=== PATIENT | male | born 1940 | race Caucasian/White ===

== ENCOUNTER 2017-05-22 07:54 | Day surgery (SDC) | payer MEDICARE, OTHER ==
[2017-05-18 14:01] VITALS: BMI 27.7
[~2017-05-22 07:54] MED LIST: ALPRAZolam 0.25 MG TAB PO PRN; ASPIRIN 325 MG TAB PO STA
[2017-05-22] MEDS ORDERED: SODIUM CHLORIDE 0.9% 1,000 ML in EMPTY BAG 1 BAG IV ONE (08:00)
[2017-05-22 08:57] LABS: Anion Gap 12 mmol/L; Blood Urea Nitrogen 21 mg/dL (9-20); Carbon Dioxide 23 mmol/L (22-30); Chloride 106 mmol/L (98-107); Glucose 112 mg/dL (74-99); Potassium 4.6 mmol/L (3.5-5.1); Sodium 141 mmol/L (137-145)
[2017-05-22] MEDS ORDERED: LIDOCAINE 2% INJ 20 MG/ML SQ ONE (14:18)
[2017-05-22] MEDS ORDERED: MIDAZOLAM 2 MG/2 ML VIAL IVP ONE (14:18)
[2017-05-22] MEDS ORDERED: IODIXANOL 320 MG/ML 100 ML INTRAARTER ONE (14:33)
[2017-05-22] MEDS ORDERED: SODIUM CHLORIDE 0.9% 1,000 ML IV SCH (14:45)
[2017-05-22 16:09] VITALS: RESP 18; TEMP 96.8
[2017-05-22 19:04] VITALS: BP 149/73; PULSE 79
--- NOTE | 2017-05-22 20:35 | P.OP ---
Date of Procedure: 05/22/17 Preoperative Diagnosis: Severe claudication [place] classification 3 Postoperative Diagnosis: 1. Same 2. Left common iliac artery occlusion Procedure(s) Performed: Aortogram with bilateral lower extremity runoffs Implants: none Anesthesia: local Surgeon: Chaparro Pearson Estimated Blood Loss (ml): 5 Pathology: none sent Condition: stable Disposition: observation Indications for Procedure: 76 year old male who presented to the office with complaints of pain with ambulation ongoing for years with worsening pain over the last couple months. Patient states only able to ambulate 200 feet without significant pain at his left hip and calves. He had MAGNOLIA of 0.52 on the left and presents today for angiogram. Operative Findings: Left common iliac artery flush occlusion with recollateralization at the common femoral artery. Aorta, Right iliac system, femoral, popliteal, tibial arteries without significant disease. Description of Procedure: After written and informed consent was obtain and all risks, benefits and complications were described the patient was brought to the general production laborer and laid in a supine position. The groins were prepped and draped in usual sterile fashion. Using ultrasound the right common femoral artery was visualized and cannulated with a multipurpose needle. Utilizing Seldinger technique a 5 khmer sheath was placed. A glidewire was placed in the aorta, followed by a pigtail catheter. An aortogram was obtained. The catheter was withdrawn and bilateral runoffs were obtained. All catheters and sheaths were then removed and pressure held for hemostasis. Dressings were then placed. The patient tolerated the procedure well.
--- NOTE | 2017-05-23 08:01 | IR ---
EXAMINATION TYPE: IR angio abdominal w runoff DATE OF EXAM: 05/22/2017 CLINICAL HISTORY: Left leg pain. TECHNIQUE: Fluoroscopy. COMPARISON: None. FINDINGS: Fluoroscopic guidance was provided during abdominal angiogram procedure performed by Dr. Lisa perry. A total of 0.9 minutes of fluoroscopic time was utilized during the procedure and 6 cine seq uences are acquired. Cine images acquired show access via right groin with complete occlusion at leve l of left common iliac artery origin and extensive collateral flow. Incidental left hip arthroplasty and surgical clips presacral region. Please refer to procedure note for further details as I was not present nor performed procedure. IMPRESSION: As Above.
== END 2017-05-22 21:00 | disposition home or self-care (01) ==
LOC: CATHCVL 07:54 → 3OBS 14:30 → CATHCVL 21:00
PROVIDERS: ATTEND Surgery
DX: I73.9 Peripheral vascular disease, unspecified (principal); I74.5 Embolism and thrombosis of iliac artery; I70.211 Atherosclerosis of native arteries of extremities with intermittent claudication, right leg; E78.5 Hyperlipidemia, unspecified; Z79.2 Long term (current) use of antibiotics; Z79.899 Other long term (current) drug therapy; Z88.5 Allergy status to narcotic agent; Z87.891 Personal history of nicotine dependence
CPT/HCPCS: 36200; 75625; 75716; 80048; C1769 ×3; C1894; J2001; J2250; Q9967

== ENCOUNTER → 2017-07-05 | Outpatient (CLI) | payer MEDICARE, OTHER ==
[2017-07-05 11:36] LABS: Appearance,Urine Clear (Clear); Bilirubin,Urine Negative (Negative); Blood,Urine Negative (Negative); Color,Urine Colorless; Glucose,Urine (UA) Negative (Negative); Ketones,Urine Negative (Negative); Leukocyte Esterase,Urine Negative (Negative); Nitrite,Urine Negative (Negative); Protein,Urine Negative (Negative); Specific Gravity,Urine 1.002 (1.001-1.035); Urobilinogen,Urine <2.0 mg/dL (<2.0)
[2017-07-05 11:38] LABS: Basophils % (A) 0 %; Eosinophils # (A) 0.1 k/uL (0-0.7); Eosinophils % (A) 1 %; HCT 42.2 % (39.0-53.0); Lymphocytes # (A) 1.4 k/uL (1.0-4.8); Lymphocytes % (A) 20 %; MCH 28.5 pg (25.0-35.0); MCHC 33.2 g/dL (31.0-37.0); MCV 85.8 fL (80.0-100.0); Mean Platelet Volume 7.6; Monocytes # (A) 0.4 k/uL (0-1.0); Monocytes % (A) 6 %; Neutrophils # (A) 5.1 k/uL (1.3-7.7); Neutrophils % (A) 71 %; Platelet Count 233 k/uL (150-450); RBC 4.92 m/uL (4.30-5.90); RDW 14.3 % (11.5-15.5); WBC 7.2 k/uL (3.8-10.6)
[2017-07-05 11:54] LABS: Potassium 4.8 mmol/L (3.5-5.1)
== END | disposition home or self-care (01) ==
LOC: LABPAT 11:02
PROVIDERS: ATTEND Surgery
DX: Z01.812 Encounter for preprocedural laboratory examination (principal); I70.212 Atherosclerosis of native arteries of extremities with intermittent claudication, left leg
CPT/HCPCS: 36415; 80051; 81003; 82565; 84520; 85025

== ENCOUNTER 2017-07-10 06:20 | Day surgery (SDC) | payer MEDICARE, OTHER ==
[2017-07-05 14:14] VITALS: BMI 28.1
[~2017-07-10 06:20] MED LIST changes: -ALPRAZolam 0.25 MG TAB PO PRN; +DEXAMETHASONE SOD PHOSPHATE 10 MG/ML 1 ML VIAL IV ONE; +LIDOCAINE 1% 20 ML VIAL (10MG/ML) FOR IV START INTRADERMA PRN; +MIDAZOLAM 2 MG/2 ML VIAL IV PRN; +MORPHINE SULFATE 2 MG/ML SYRINGE IV PRN; +ONDANSETRON 4 MG/2 ML VIAL IVP ONE; +SCOPOLAMINE 1.5MG/72HR PATCH TRANSDERM ONE; +SODIUM CHLORIDE 0.9% 1,000 ML in EMPTY BAG 1 BAG IV ONE
[2017-07-10] MEDS ORDERED: MIDAZOLAM 2 MG/2 ML VIAL IVP ONE (07:36)
[2017-07-10] MEDS ORDERED: LIDOCAINE 2% INJ 20 MG/ML SQ ONE (07:40)
[2017-07-10] MEDS ORDERED: HEPARIN SODIUM 1,000 UN/ML (10ML VL) IV ONE (07:47)
[2017-07-10] MEDS: fentaNYL (PF) 50 MCG/ML 2 ML AMP IVP ONE ×2 (08:30→10:09)
[2017-07-10] MEDS ORDERED: LABETALOL 5 MG/ML VIAL MDV IVP ONE (10:32)
[2017-07-10] MEDS ORDERED: IODIXANOL 320 MG/ML 100 ML INTRAARTER ONE (10:33)
[2017-07-10] MEDS ORDERED: CLOPIDOGREL 75 MG TAB PO ONE (10:37)
[2017-07-10] MEDS ORDERED: PROTAMINE SULFATE 10 MG/ML 5 ML VIAL IV ONE (10:43)
--- NOTE | 2017-07-10 12:08 | P.OP ---
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 Postoperative Diagnosis: Same Procedure(s) Performed: 1. Left common iliac and external iliac artery percutaneous balloon angioplasty and Viabahn and the VBX stent placement via bilateral common femoral artery access under ultrasound guidance. Implants: Viabahn stent [id number], VBX stent 7x79mm and 7x29mm Anesthesia: MAC (2 hours of moderate sedation with Versed.), local Surgeon: Chaparro Pearson Estimated Blood Loss (ml): 30 IV fluids (ml): 400 Pathology: none sent Condition: stable Disposition: observation Indications for Procedure: 76-year-old gentleman who presented originally to the office with complaints of left lower extremity pain especially with ambulation originating at his anterior thigh and hip region. Previously he underwent multiple orthopedic surgeries including a total knee and total hip. Upon visit to the vascular surgeon he had ABIs which demonstrated decreased blood flow in the left lower extremity and then underwent angiogram which demonstrated a chronic total occlusion of his left common iliac artery extending to his external iliac artery. He presents today for attempt at revascularization endovascularly. Operative Findings: Left common iliac artery with chronic total occlusion with a large collateral vessel filling distally to the common femoral artery. Description of Procedure: After written informed consent was obtained from the patient all risks benefits and competitions were described the patient was brought to the Game Producer laid in a supine position the area of the groins were prepped and draped in the usual sterile fashion. Versed and fentanyl were given for moderate anesthesia. A timeout was performed in normal fashion with all parties are in agreement. Local anesthetic was then infused overlying the femoral vessels. Utilizing ultrasound the right common femoral artery was visualized and shown to be patent without any dense calcification. Multipurpose needle followed by Seldinger technique was utilized to place a 5-Honduran sheath in the common femoral artery. An .035 Glidewire advantage was then placed into the aorta followed by a 6.5-Honduran Destino sheath. Aortogram was then obtained demonstrating flush occlusion of the common iliac artery. Utilizing the Destino sheath and a series of wires the lesion was entered. Ultimately an .018 and .014 Astato wire was utilized to attempt to cross the lesion. Access was required in the left common femoral artery and therefore a 7 -Honduran sheath was placed under ultrasound guidance utilizing Seldinger technique. Once placed the lesion was crossed from a distal aspect and the retrograde and antegrade wires were met. Once crossed the .014 wire was placed within the 7-Honduran sheath and pulled externally. This was then used as a body floss wire to enter into the true lumen of the aorta from the left common femoral artery. An 018 Glidewire advantage was then placed followed by a 4 x 200 mm balloon. Balloon angioplasty. Left lower extremity selective angiogram of the iliac system was then obtained demonstrating improved blood flow to the femorals. At that time was determined to place a covered stent across the common and external iliac arteries. A 7 x 100 mm Viabahn stent was then placed and deployed in normal fashion at the femoral extending up to the external iliac artery. This was removed followed by a 7 x 79 mm VBX stent at the common iliac extending into the previously placed Viabahn stent. Angiogram was then obtained demonstrating improved blood flow through the stents with an area just at the bifurcation that appeared to be calcified. Blood pressures were then obtained through both sheaths demonstrating a gradient of greater than 20 mmHg on the left compared to the right. Because of this a 7 x 29 mm VBX stent was then placed at the orifice of the bifurcation. Finally gram was obtained revealing good brisk blood flow to the femorals bilaterally. Intravascular blood pressures were then obtained demonstrating equal blood pressures bilaterally without any evidence of a gradient. Pulses were then palpated distally bilateral DP and PT pulses were felt. All guidewires and catheters were then removed. Sheath was removed from each groin and pressure was placed for hemostasis. Hemostasis was achieved and dressings were placed. Patient tied procedure well was sent to PACU for recovery. Plan - Discharge Summary Discharge Rx Participant: Yes New Discharge Prescriptions: No Action Fish Oil/Dha/Epa [Fish Oil 1,200 mg Fish Oil] 1 each PO DAILY Lisinopril [Zestril] 20 mg PO DAILY Atorvastatin Calcium [Lipitor] 10 mg PO HS [place] 27 mg PO DAILY Discharge Medication List Atorvastatin Calcium [Lipitor] 10 mg PO HS 05/18/17 [History] Fish Oil/Dha/Epa [Fish Oil 1,200 mg Fish Oil] 1 each PO DAILY 05/18/17 [History] Lisinopril [Zestril] 20 mg PO DAILY 05/18/17 [History] [place] 27 mg PO DAILY 07/05/17 [History]
[2017-07-10 12:42] LABS: Calcium 9.8 mg/dL (8.4-10.2)
[2017-07-10 12:59] VITALS: RESP 18
[2017-07-10 13:06] LABS: Basophils % (A) 0 %; Eosinophils % (A) 0 %; HCT 42.2 % (39.0-53.0); HGB 14.2 gm/dL (13.0-17.5); Lymphocytes # (A) 1.3 k/uL (1.0-4.8); Lymphocytes % (A) 18 %; MCH 28.9 pg (25.0-35.0); MCHC 33.7 g/dL (31.0-37.0); MCV 85.7 fL (80.0-100.0); Mean Platelet Volume 7.5; Monocytes # (A) 0.5 k/uL (0-1.0); Monocytes % (A) 8 %; Neutrophils % (A) 72 %; Platelet Count 200 k/uL (150-450); RBC 4.92 m/uL (4.30-5.90); RDW 14.2 % (11.5-15.5); WBC 6.9 k/uL (3.8-10.6)
[2017-07-10] MEDS: LACTATED RINGERS 1,000 ML IV SCH (16:35)
[2017-07-10] MEDS: SODIUM CHLORIDE 0.9% 1,000 ML IV SCH ×2 (16:37→20:35)
[2017-07-10] MEDS ORDERED: PRAVASTATIN SODIUM 40 MG TAB PO SCH (21:00)
[2017-07-11] MEDS: LACTATED RINGERS 1,000 ML IV SCH (05:55)
--- NOTE | 2017-07-11 07:12 | P.PN ---
Subjective Progress Note Date: 07/11/17 Principal diagnosis: Left Iliac artery occlusion Patient seen and examined. Doing well overnight without any complaints. States he had a little bit of oozing from his left groin which has since ceased. He denies any pain, fevers, chills, chest pain or shortness of breath. He states he ambulated last night without difficulty. He also wishes to be discharged today if possible. Objective - Vital Signs Vital signs: Vital Signs Temp 97.5 F L 07/10/17 20:15 Pulse 85 07/11/17 04:30 Resp 18 07/11/17 04:30 BP 132/78 07/11/17 04:30 Pulse Ox 95 07/11/17 04:30 Intake & Output 07/10/17 07/11/17 07/11/17 18:59 06:59 18:59 Intake Total 360 740 Balance 360 740 Weight 78 kg Intake: IV 0 Intake, IV Titration 500 Amount Sodium Chloride 0.9% 1, 500 000 ml @ 100 mls/hr IV . Q10H [facility] Rx#:[id number] Oral 360 240 Other: Voiding Method Toilet # Voids 3 - Exam Well-nourished well-developed, no acute distress. Bilateral groins are soft, no evidence of hematoma, nontender to palpation. Palpable DP pulses bilaterally. - Labs CBC & Chem 7: 07/10/17 12:10 07/11/17 06:15 Assessment and Plan Assessment: 1. Postoperative day 1 left common iliac artery percutaneous transluminal balloon angioplasty with stenting. 2. Disabling claudication Plan: Okay for discharge home. Continue taking Plavix, statin. Follow-up then 2 weeks.
[2017-07-11] MEDS: SODIUM CHLORIDE 0.9% 1,000 ML IV SCH (07:43)
[2017-07-11] MEDS ORDERED: LISINOPRIL 20 MG TAB PO SCH (09:00)
[2017-07-11] MEDS ORDERED: CLOPIDOGREL 75 MG TAB PO SCH (09:00)
[2017-07-11] MEDS ORDERED: ASPIRIN 81 MG PO SCH (09:00)
[2017-07-11 11:10] VITALS: BP 154/80; PULSE 95; TEMP 97
--- NOTE | 2017-07-16 11:09 | IR ---
EXAMINATION TYPE: IR stent intravas non coronary DATE OF EXAM: 07/10/2017 COMPARISON: NONE HISTORY: Peripheral vascular occlusive disease. Fluoroscopy was provided to the referring clinician. See dictated report from cardiology.
== END 2017-07-11 12:10 | disposition home or self-care (01) ==
LOC: CATHCVL 06:20 → 6SEL 10:24 → CATHCVL 07-11 12:10 → 6SEL 07-11 12:26
PROVIDERS: ATTEND Surgery
DX: I70.212 Atherosclerosis of native arteries of extremities with intermittent claudication, left leg (principal); I70.92 Chronic total occlusion of artery of the extremities; E78.5 Hyperlipidemia, unspecified; I10 Essential (primary) hypertension; Z79.2 Long term (current) use of antibiotics; Z79.899 Other long term (current) drug therapy; Z79.82 Long term (current) use of aspirin; Z88.5 Allergy status to narcotic agent; Z96.642 Presence of left artificial hip joint; Z96.652 Presence of left artificial knee joint; Z87.891 Personal history of nicotine dependence
CPT/HCPCS: 37221; 37223; 80048; 82565; 85025; C1733; C1769 ×5; C1894 ×2; C1725 ×2; C1887; C1874 ×2; J2001; J2250; J2720; Q9967; J3010; J1644; 86850; 86900; 86901

== ENCOUNTER → 2021-03-28 | Outpatient (CLI) | payer MEDICARE, OTHER ==
[2021-03-28 18:46] LABS: Basophils # (A) 0.04 X 10*3/uL (0.00-0.10); Basophils % (A) 0.4 %; Eosinophils # (A) 0.08 X 10*3/uL (0.04-0.35); Eosinophils % (A) 0.9 %; HCT 42.1 % (39.6-50.0); HGB 13.6 g/dL (13.0-17.0); Lymphocytes # (A) 1.81 X 10*3/uL (0.90-5.00); Lymphocytes % (A) 19.8 %; MCH 29.2 pg (27.0-32.0); MCHC 32.3 g/dL (32.0-37.0); MCV 90.5 fL (80.0-97.0); Mean Platelet Volume 10.6 fL (9.5-12.2); Monocytes % (A) 9.8 %; Neutrophils # (A) 6.27 X 10*3/uL (1.80-7.70); Neutrophils % (A) 68.7 %; Platelet Count 285 X 10*3/uL (140-440); RBC 4.65 X 10*6/uL (4.40-5.60); RDW 14.2 % (11.5-14.5); WBC 9.14 X 10*3/uL (4.50-10.00)
[2021-03-28 21:07] LABS: African American GFR (CKD) 65.3 (60.0-200.0); Anion Gap 13.1 mmol/L (10.00-18.00); Blood Urea Nitrogen 20.7 mg/dL (9.0-27.0); Carbon Dioxide 20.9 mmol/L (20.0-27.5); Non-African American GFR(CKD) 56.4 (60.0-200.0); Potassium 4.6 mmol/L (3.5-5.5)
== END | disposition home or self-care (01) ==
LOC: LABWHC1 13:38
PROVIDERS: ATTEND Surgery
DX: Z01.812 Encounter for preprocedural laboratory examination (principal); I77.1 Stricture of artery
CPT/HCPCS: 36415; 80051; 82565; 84520; 85025

== ENCOUNTER 2021-03-29 06:33 | Inpatient (IN) | payer MEDICARE, OTHER ==
[~2021-03-29 06:33] MED LIST changes: -ASPIRIN 325 MG TAB PO STA; -DEXAMETHASONE SOD PHOSPHATE 10 MG/ML 1 ML VIAL IV ONE; -LIDOCAINE 1% 20 ML VIAL (10MG/ML) FOR IV START INTRADERMA PRN; -MIDAZOLAM 2 MG/2 ML VIAL IV PRN; -MORPHINE SULFATE 2 MG/ML SYRINGE IV PRN; -ONDANSETRON 4 MG/2 ML VIAL IVP ONE; -SCOPOLAMINE 1.5MG/72HR PATCH TRANSDERM ONE
[2021-03-29] MEDS ORDERED: ASPIRIN 325 MG TAB PO PRN (07:00)
[2021-03-29] MEDS ORDERED: SODIUM CHLORIDE 0.9% 1,000 ML IV ONE ×2 (07:13→10:59)
[2021-03-29 07:52] LABS: Calcium 9.9 mg/dL (8.4-10.2)
[2021-03-29] MEDS ORDERED: LIDOCAINE 1% INJ 10MG/ML (20 ML MDV) ONE (07:54)
[2021-03-29 07:57] LABS: Potassium 4.7 mmol/L (3.5-5.1)
[2021-03-29] MEDS: MIDAZOLAM 2 MG/2 ML VIAL IV ONE ×2 (08:23→08:45)
[2021-03-29] MEDS ORDERED: LIDOCAINE 1% INJ 10MG/ML (20 ML MDV) SQ ONE (08:24)
[2021-03-29] MEDS ORDERED: fentaNYL (PF) 50 MCG/ML 5 ML AMP IV ONE (08:26)
[2021-03-29] MEDS ORDERED: HEPARIN SODIUM 1,000 UN/ML (10ML VL) ONE (08:41)
[2021-03-29] MEDS: HEPARIN SODIUM 1,000 UN/ML (10ML VL) IV ONE ×2 (08:45→09:32)
[2021-03-29] MEDS ORDERED: ALTEPLASE IV STA (09:20)
[2021-03-29] MEDS ORDERED: ALTEPLASE 2 MG VIAL (CATHFLO) IV STA (09:31)
[2021-03-29] MEDS ORDERED: NITROGLYCERIN 1000MCG/10ML SYRINGE INTRAARTER ONE (10:19)
[2021-03-29] MEDS ORDERED: ALTEPLASE BOLUS 1 MG/1 ML SYRINGE IVP ONE (10:21)
[2021-03-29] MEDS ORDERED: niCARdipine 25 MG/10 ML VIAL ONE (10:26)
[2021-03-29] MEDS ORDERED: niCARdipine Syringe (1,000 mcg/10 mL) INTRAARTER ONE (10:29)
[2021-03-29 11:42] LABS: Glucose,Whole Blood 110 mg/dL (75-99)
--- NOTE | 2021-03-29 11:46 | IR ---
Fluoroscopy HISTORY: Peripheral vascular disease 37 minutes fluoroscopy time supplied to the referring clinician. 384 intraoperative C-arm images doc ument the procedure. See dictated report from vascular surgery.
--- NOTE | 2021-03-29 12:02 | P.OP ---
Date of Procedure: 03/29/21 Description of Procedure: Preoperative diagnosis: Left lower extremity critical limb ischemia Postop diagnosis: Left lower extremity critical limb ischemia Mena classification 4, left common iliac and external iliac artery stent thrombosis, small vessel outflow occlusive disease at the ankle Procedure: 1. Ultrasound-guided right common femoral artery access 2. Aortogram with left lower extremity angiogram 3. Selective left lower extremity angiogram third order catheter placement 4. Percutaneous mechanical thrombectomy of the left common iliac, external iliac in-stent thrombus with penumbra 6 and 7 lightning catheter 5. Percutaneous mechanical thrombectomy of the left superficial femoral and tibial peroneal trunk with penumbra catheter 6. Percutaneous transluminal balloon angioplasty of the left common iliac and external iliac in-stent stenosis with a 6 x 150 mm balloon 7. Intravascular ultrasound of the left common iliac, external iliac, common femoral and superficial femoral artery 8. Placement of EKOS thrombolytic catheter with initiation of thrombolysis Surgeon: Michel Anesthesia: Moderate sedation times 175 minutes Estimated blood loss: 500 mL Complications: None Condition: Stable with a biphasic signal AT and PT Findings: Occlusion of the left common and external iliac stent with thrombus. After penumbra thrombectomy and balloon angioplasty there was thrombus that extruded down to the tibial trunk. Two-vessel runoff to the ankle with no filling of the foot Aorta: Widely patent with some mild atherosclerotic, calcific disease without significant stenosis Iliacs: Left common iliac and external iliac stent believe thrombosed with reconstitution at the common femoral Femorals: Common femoral, superficial femoral and profundus femoris are widely patent with minimal disease. Popliteal: Widely patent with minimal after stenotic disease. No evidence of stenosis Tibials: Tibioperoneal trunk is patent with three-vessel takeoff and two-vessel runoff to the ankle Operative narrative: After written informed consent was obtained the patient all risks benefits competitions were described the patient is brought to the Automatic Beam Warper Tender and laid in a supine position. The area of the right groin was prepped and draped in the usual sterile fashion. Local anesthesia with moderate sedation was performed with continuous pulse ox monitoring and EKG monitoring. Utilizing ultrasound the right common femoral artery was visualized and shown to be patent without any significant plaque. Utilizing a multipurpose needle under ultrasound guidance the artery was accessed. Guidewire was placed followed by a 5-Venezuelan sheath. 035 Glidewire was then placed into the aorta followed by pigtail catheter. Angiogram was then obtained of the aorta demonstrating occlusion of the left common iliac and external iliac stent. 035 Glidewire advantage was then placed and sheath was upsized to a 6.5-Venezuelan steerable sheath. This was then placed into the distal aorta and angled to the left common iliac stents and utilizing an 035 Glidewire advantage the stents were entered and crossed. Utilizing the RBI catheter the stent was crossed into the common femoral artery and distal angiogram was obtained demonstrating good intraluminal access. Due to the thrombotic nature at that time was determined to place a percutaneous thrombectomy catheter. 035 Glidewire advantage was then placed and RBI catheter was removed and a 6-Venezuelan penumbra thrombectomy catheter was placed and multiple passes were performed over the wire. Injury gram was then obtained again demonstrating slight improvement but significant thrombus within the stents. Intravascular ultrasound catheter was then placed after the Glidewire was switched an 014 guidewire. Left common iliac and external iliac as well as the common femoral artery was visualized under ultrasound demonstrating thrombus throughout with out significant stenosis. Balloon angioplasty was then performed with a 6 x 150 mm balloon and intravascular ultrasound was performed once again after angioplasty. There is improvement of the lumen but still significant thrombus noted. Due to the size of the stents it was determined that a 7 lightning penumbra catheter was needed and thrombectomy was performed after upsizing to a 7-Venezuelan sheath. Multiple passes were performed with large amount of thrombus removed. Once completed selective angiogram was then again obtained demonstrating brisk flow through the external iliac and common iliac stent but floating thrombus noted in the superficial femoral artery. Penumbra lightning 7 catheter was then placed down into the SFA and thrombectomy was performed removing once again portions of the thrombus. Final angiogram distally demonstrated still thrombus noted at the TPT trunk which was chased with the penumbra 7 catheter and removed. Once completed patient was administered TPA as well as nitro distally into the tibial vessels. There was two-vessel runoff to the ankle and no filling pass this area. Patient was not having any pain and was moving his legs without issue. Due to the poor outflow issue at the ankle and recheck of the stents demonstrated thrombus once again a thrombolytic catheter was placed across the stents and into the superficial femoral artery and thrombolysis will be performed to clean up the thrombus. The sheath was secured in the right groin and dressings placed. Patient tolerated procedure well was sent to ICU for recovery.
[2021-03-29] MEDS: SODIUM CHLORIDE 0.9% 1,000 ML IV SCH ×2 (12:22→23:57)
[2021-03-29] MEDS: ALTEPLASE 10 MG in SODIUM CHLORIDE 0.9% 100 ML IV ONE ×3 (12:22→17:11)
[2021-03-29] MEDS: HEPARIN SOD,PORK IN 0.45% NACL 25,000 UNIT in 0.45% NACL 1 250ML.BAG IV SCH (12:23)
[2021-03-29 14:51] LABS: Basophils % (A) 0 %; Eosinophils # (A) 0.1 k/uL (0-0.7); Eosinophils % (A) 1 %; HCT 36.1 % (39.0-53.0); HGB 11.8 gm/dL (13.0-17.5); Lymphocytes # (A) 1.4 k/uL (1.0-4.8); Lymphocytes % (A) 16 %; MCH 30.1 pg (25.0-35.0); MCHC 32.7 g/dL (31.0-37.0); MCV 92.2 fL (80.0-100.0); Mean Platelet Volume 8.5; Monocytes # (A) 0.6 k/uL (0-1.0); Monocytes % (A) 6 %; Neutrophils # (A) 6.9 k/uL (1.3-7.7); Neutrophils % (A) 76 %; Platelet Count 205 k/uL (150-450); RBC 3.91 m/uL (4.30-5.90); RDW 13.6 % (11.5-15.5)
[2021-03-29 15:11] LABS: Partial Thromboplastin Time 30.1 sec (22.0-30.0); Prothrombin Time 10.4 sec (9.0-12.0)
[2021-03-29] MEDS: ALTEPLASE 10 MG in SODIUM CHLORIDE 0.9% 100 ML IV SCH ×2 (17:12→23:57)
[2021-03-29] MEDS ORDERED: ATORVASTATIN 10 MG TAB PO SCH (21:00)
[2021-03-30 05:24] LABS: Basophils % (A) 0 %; Eosinophils # (A) 0.1 k/uL (0-0.7); Eosinophils % (A) 1 %; HCT 32.2 % (39.0-53.0); HGB 10.6 gm/dL (13.0-17.5); Lymphocytes # (A) 1.1 k/uL (1.0-4.8); Lymphocytes % (A) 15 %; MCH 30.6 pg (25.0-35.0); MCHC 32.7 g/dL (31.0-37.0); MCV 93.4 fL (80.0-100.0); Mean Platelet Volume 8.6; Monocytes # (A) 0.5 k/uL (0-1.0); Monocytes % (A) 6 %; Neutrophils # (A) 5.7 k/uL (1.3-7.7); Neutrophils % (A) 76 %; Platelet Count 185 k/uL (150-450); RBC 3.45 m/uL (4.30-5.90); RDW 14.2 % (11.5-15.5); WBC 7.5 k/uL (3.8-10.6)
[2021-03-30 05:39] LABS: African American GFR (CKD) >90 (>60 ml/min/1.73 sqM); Anion Gap 6 mmol/L; Blood Urea Nitrogen 17 mg/dL (9-20); Calcium 8.3 mg/dL (8.4-10.2); Carbon Dioxide 21 mmol/L (22-30); Chloride 110 mmol/L (98-107); Glucose 115 mg/dL (74-99); Non-African American GFR(CKD) 78 (>60 ml/min/1.73 sqM); Potassium 4.2 mmol/L (3.5-5.1); Prothrombin Time 10.7 sec (9.0-12.0); Sodium 137 mmol/L (137-145)
[2021-03-30] MEDS: ASPIRIN 81 MG PO SCH (11:00)
[2021-03-30] MEDS: LOSARTAN 50 MG TAB PO SCH (11:00)
[2021-03-30] MEDS: amLODIPine 10 MG TAB PO SCH (11:00)
[2021-03-30] MEDS: ASCORBIC ACID 500 MG TAB PO SCH (11:00)
[2021-03-30] MEDS: fentaNYL (PF) 50 MCG/ML 5 ML AMP IVP ONE ×2 (13:43→13:57)
[2021-03-30] MEDS ORDERED: MIDAZOLAM 2 MG/2 ML VIAL IVP ONE (13:44)
[2021-03-30] MEDS ORDERED: IV FLUID CONTINUATION 1,000 ML IV ONE (13:44)
[2021-03-30] MEDS ORDERED: LIDOCAINE 1% INJ 10MG/ML (20 ML MDV) SQ ONE (13:53)
[2021-03-30] MEDS ORDERED: IOPAMIDOL-250 100ML BTL INTRAARTER ONE (13:53)
--- NOTE | 2021-03-30 14:15 | P.OP ---
Date of Procedure: 03/30/21 Description of Procedure: Preoperative diagnosis: [Left lower extremity arterial occlusion, previous iliac stent placement] Postoperative diagnosis: Same, Patent iliac, femoral, popliteal,TP trunk, anterior tibial and dorsalis pedis at the ankle Procedure: [#1 TPA rechecked via existing catheter #2 left lower extremity angiogram #3Moderate conscious sedation 11 minutes Percutaneous closure right femoral artery] Surgeon: Missy Josue D.O. EBL: [Less than 10 mL] IV fluids: [See records] Urine output: [None] Complications: [[None immediately apparent]] Condition: [Stable to recovery] Operative indication and findings: [Patient is an 80-year-old male who previously had left iliac stents placed. He was brought to the Celebrity Manager yesterday for intervention and evaluation of the stents that appear to be thrombosed at that time, he had suction thrombectomy performed however there was residual thrombus noted therefore TPA catheter was left in place. He presents today for recheck. He feels better than previous] Procedure in detail: [Patient was taken to the special suite and placed in supine position. The previously access groin site was prepped and draped in usual sterile fashion and a preprocedure timeout was performed, all parties were in agreement. The ultrasound catheter was removed a wire was placed and the ghost thrombotic catheter was removed. An angiogram was performed showing a widely patent common and external iliac artery with no evidence of stenosis. The left common femoral, superficial and profunda are patent without evidence of stenosis or thrombus. A catheter was in place and the superficial femoral artery and angiogram was obtained. The popliteal, anterior tibial, TPA trunk, peroneal and posterior tibial were all patent at their takeoffs. The dorsalis pedis and posterior tibial appear patent at the level of the ankle. There is peroneal runoff through the midcalf. Catheters and wires were removed. The sheath was exchanged for a short 7-Bahraini sheath and a percutaneous vascular closure device was deployed with good success and good hemostasis. Pressure was held. Hemostasis was adequate. The patient maintained bilateral DP and PT pulses at this time. After discussion the patient he does have a history of atrial fibrillation in the past that he has been told before, he does not take any medications for this. Given there is no evidence for any stenosis or reason for reocclusion of his stenosis, we will evaluate further for this arrhythmia. He will be started on oral anticoagulation due to the thrombotic nature of his concern.]
--- NOTE | 2021-03-30 14:30 | IR ---
Fluoroscopy HISTORY: Peripheral vascular occlusive disease 90 seconds fluoroscopy time supplied to the referring clinician. 114 intraoperative C-arm images doc ument the procedure. See dictated report from vascular surgery.
--- NOTE | 2021-03-30 18:20 | CONS ---
CONSULTATION Mr. Curry is an 80-year-old male with history of hypertension and history of hyperlipidemia who presented with discomfort in the left lower extremity. He had undergone stenting of that vessel in [address] Pearson and had done well until about a week ago, when he started to have numbness and tingling with discomfort in the left lower extremity. He underwent angiography yesterday and was found to have evidence of a thrombus and underwent percutaneous mechanical thrombectomy of the left common iliac with evidence of external iliac in-stent thrombus, underwent balloon angioplasty of the same area and subsequent EKOS placement for thrombolytic infusion. He underwent repeat angiography today by Dr. Josue and angiography showed widely patent common and external iliac arteries with no evidence of stenosis and no evidence of thrombus in the left common femoral, superficial and profunda. Cardiology consultation was requested to rule out cardiac source for embolic phenomenon. Patient has been told before that he has a heart murmur, but he does not recall being told that he had an irregular heartbeat or atrial fibrillation. He is usually active physically without associated chest discomfort. No dyspnea on exertion. He denies any dizziness or palpitations. No syncope. No PND. No orthopnea. He had some peripheral edema recently on the left side. He has a history of hypertension and hyperlipidemia, but he stopped smoking over 30 years ago. He is nondiabetic. His medication at home included amlodipine 10 mg daily, losartan 100 mg daily, Lipitor 10 mg daily and aspirin once a day. REVIEW OF SYSTEMS: RESPIRATORY SYSTEM: He has no documented history of asthma, emphysema or bronchitis. GI SYSTEM: No recent GI bleeding. No peptic ulcer disease. SYSTEM: No dysuria or hematuria. NERVOUS SYSTEM: No stroke or seizure. PHYSICAL EXAMINATION: He is an 80-year-old male, alert, oriented, in no apparent distress. Blood pressure 146/60 with a heart rate in the 80s. HEAD: Normocephalic. Eyes: Sclerae anicteric. NECK: Good carotid upstroke. No bruit. No jugular venous distention. LUNGS: Clear to auscultation. HEART: Regular rate and rhythm. S1, S2. No S3. No S4. No murmur or rub. ABDOMEN: Soft, nontender. Positive bowel sounds. No organomegaly. EXTREMITIES: Dressing on the right groin. Both lower extremities are warm. Pulse noted. LAB DATA: Lab data revealed a hemoglobin of 10.6, BUN and creatinine of 17 and 0.92, potassium 4.2. Reviewing the monitor, patient had single PACs, but no evidence to suggest atrial fibrillation. IMPRESSION: 1. Thrombus of the stented segment of the left iliac. Patient has single PACs, but no documented atrial fibrillation so far. 2. History of hypertension. 3. Hyperlipidemia. RECOMMENDATIONS: From the cardiac standpoint, patient has been started on anticoagulation in the form of Eliquis. I will obtain echocardiogram with Doppler to evaluate the left ventricular systolic function and rule out cardiomyopathy, although by history he has no prior history to suggest cardiomyopathy. Then depending on his progress, further recommendations will be made. He will undergo workup as an outpatient to rule out paroxysmal atrial fibrillation that can explain his presenting symptoms. Thank you for this consult. Will follow with you. MIGDALIA / BRIANNE: [id number] / MTDD
[2021-03-30] MEDS: HEPARIN SOD,PORK IN 0.45% NACL 25,000 UNIT in 0.45% NACL 1 250ML.BAG IV SCH (18:23)
[2021-03-30] MEDS: SODIUM CHLORIDE 0.9% 1,000 ML IV SCH (18:40)
[2021-03-30] MEDS ORDERED: ATORVASTATIN 40 MG TAB PO SCH (21:00)
[2021-03-30] MEDS: APIXABAN 5 MG TAB PO SCH (21:27)
[2021-03-31 02:25] VITALS: RESP 16
[2021-03-31] MEDS: APIXABAN 5 MG TAB PO SCH (09:22)
[2021-03-31] MEDS: ASCORBIC ACID 500 MG TAB PO SCH (09:22)
[2021-03-31] MEDS: amLODIPine 10 MG TAB PO SCH (09:22)
[2021-03-31] MEDS: ASPIRIN 81 MG PO SCH (09:22)
[2021-03-31] MEDS: LOSARTAN 50 MG TAB PO SCH (09:22)
[2021-03-31 09:32] VITALS: TEMP 97.2
--- NOTE | 2021-03-31 10:36 | ECHOF ---
Referral Reason:pad MEASUREMENTS -------- HEIGHT: 170.2 cm WEIGHT: 84.4 kg BP: 123/81 RVIDd: 3.2 cm (< 3.3) IVSd: 1.2 cm (0.6 - 1.1) LVIDd: 3.5 cm (3.9 - 5.3) LVPWd: 1.2 cm (0.6 - 1.1) IVSs: 1.9 cm LVIDs: 2.5 cm LVPWs: 1.6 cm LA Diam: 2.8 cm (2.7 - 3.8) Ao Diam: 3.8 cm (2.0 - 3.7) AV Cusp: 2.1 cm (1.5 - 2.6) MV EXCURSION: 18.807 mm (> 18.000) MV EF SLOPE: 20 mm/s (70 - 150) EPSS: 0.6 cm MV E Luiz: 0.77 m/s MV DecT: 268 ms MV A Luiz: 0.95 m/s MV E/A Ratio: 0.81 FINDINGS -------- Sinus rhythm. This was a technically adequate study. The left ventricular size is normal. There is borderline concentric left ventricular hypertrophy. Overall left ventricular systolic function is normal with, an EF between 60 - 65 %. The right ventricle is normal in size. The left atrium is normal in size. The right atrium is normal in size. Interatrial and interventricular septum intact. The aortic valve is trileaflet, and appears structurally normal. No aortic stenosis or regurgitation. Mild mitral annular calcification present. The tricuspid valve appears structurally normal. Unable to estimate RVSP due to inadequate TR jet s pectral doppler profile. The pulmonic valve was not well visualized. The aortic root is dilated measuring 3.8cm. Normal inferior vena cava with normal inspiratory collapse consistent with estimated right atrial pre ssure of 5 mmHg. There is no pericardial effusion. CONCLUSIONS -------- 1. The left ventricular size is normal. 2. There is borderline concentric left ventricular hypertrophy. 3. Overall left ventricular systolic function is normal with, an EF between 60 - 65 %. 4. The aortic valve is trileaflet, and appears structurally normal. No aortic stenosis or regurgitati on. 5. Mild mitral annular calcification present. 6. The aortic root is dilated measuring 3.8cm. 7. There is no pericardial effusion. ELEVATOR ERECTOR: Silvia Perry RDCS
--- NOTE | 2021-03-31 10:57 | P.PN ---
Subjective This is an 80-year-old male with a past medical history of hypertension hyperlipidemia. Patient presented with discomfort in the left lower extremity. He underwent angiography and was found to have evidence of a thrombus, and underwent percutaneous mechanical thrombectomy of the left common iliac with evidence of external iliac in-stent thrombosis, underwent balloon angioplasty at the same area and subsequent EKOS placement for thrombolytic infusion. Cardiology was consulted to rule out cardiac source for embolic phenomenon. Patient states that at bedside, no acute distress. He does have some numbness and tingling pain to left leg weakness significantly improved from admission. Telemetry reviewed, patient maintaining sinus mechanism heart rate 70s no evidence of atrial fibrillation. His vital signs are stable His echocardiogram revealed an EF of 6065 percent, aortic root is dilated at 3.8 cm. GENERAL: Well-appearing, well-nourished and in no acute distress. NECK: Supple without JVD or thyromegaly. LUNGS: Breath sounds clear to auscultation bilaterally. Respiration equal and unlabored. No wheezes, rales or rhonchi. HEART: Regular rate and rhythm without murmurs, rubs or gallops. S1 and S2 heard. EXTREMITIES: Normal range of motion, no edema. No clubbing or cyanosis. 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 Echocardiogram obtained and reviewed. Patient is stable to be discharged from cardiology perspective. Plan to follow up with Dr. Godwin in 1 week. He will undergo workup to rule out paroxysmal fibrillation. Nurse Practitioner note has been reviewed, I agree with a documented findings and plan of care. Patient was seen and examined. Objective - Vital Signs Vital signs: Vital Signs Temp 97.2 F L 03/31/21 08:45 Pulse 95 03/31/21 08:45 Resp 16 03/31/21 08:45 BP 138/58 03/31/21 08:45 Pulse Ox 94 L 03/31/21 08:45 Intake & Output 03/30/21 03/31/21 03/31/21 18:59 06:59 18:59 Intake Total 1540 20 Output Total 1140 1100 Balance 400 -1080 Weight 80.5 kg Intake: IV 860 20 0.9 NaCl- 410 20 0.9 NaCl- for EKOS 350 Alteplase 10 mg In Sodium 50 Chloride 0.9% 100 ml @ 1 MG/HR 10 mls/hr IV .Q10H [facility] Rx#:[id number] Intake, IV Titration 80 Amount IV Fluid Continuation 1, 80 000 ml @ 0 mls/hr IV .[facility] Rx#:[id number] Oral 600 Output: Urine 1140 1100 Other: Voiding Method Indwelling Catheter Indwelling Catheter - Labs CBC & Chem 7: 03/30/21 05:01 03/30/21 05:01
[2021-03-31 14:10] VITALS: BP 125/64; PULSE 96
== END 2021-03-31 15:05 | disposition home or self-care (01) | DRG 271 ==
LOC: CATHCVL 06:33 → 2SICU 12:01 → 3SCARD 03-30 20:40
PROVIDERS: ADMIT Surgery; ATTEND Surgery
PROC: 04CS3ZZ Extirpation of Matter from Left Posterior Tibial Artery, Percutaneous Approach (ICD-10-PCS; principal; 2021-03-29 09:00)
PROC: 04CL3ZZ Extirpation of Matter from Left Femoral Artery, Percutaneous Approach (ICD-10-PCS; principal; 2021-03-29 09:00)
PROC: 04CD3ZZ Extirpation of Matter from Left Common Iliac Artery, Percutaneous Approach (ICD-10-PCS; principal; 2021-03-29 09:00)
PROC: 047D3ZZ Dilation of Left Common Iliac Artery, Percutaneous Approach (ICD-10-PCS; principal; 2021-03-29 09:00)
PROC: 04CJ3ZZ Extirpation of Matter from Left External Iliac Artery, Percutaneous Approach (ICD-10-PCS; principal; 2021-03-29 09:00)
PROC: 047J3ZZ Dilation of Left External Iliac Artery, Percutaneous Approach (ICD-10-PCS; principal; 2021-03-29 09:00)
PROC: B41J1ZZ Fluoroscopy of Other Lower Arteries using Low Osmolar Contrast (ICD-10-PCS; 2021-03-29 09:00)
PROC: B4101ZZ Fluoroscopy of Abdominal Aorta using Low Osmolar Contrast (ICD-10-PCS; 2021-03-29 09:00)
PROC: B41J1ZZ Fluoroscopy of Other Lower Arteries using Low Osmolar Contrast (ICD-10-PCS; 2021-03-30)
PROC: 06PYX3Z Removal of Infusion Device from Lower Vein, External Approach (ICD-10-PCS; 2021-03-30)
DX: T82.868A Thrombosis due to vascular prosthetic devices, implants and grafts, initial encounter (principal); I74.3 Embolism and thrombosis of arteries of the lower extremities; I70.213 Atherosclerosis of native arteries of extremities with intermittent claudication, bilateral legs; E78.5 Hyperlipidemia, unspecified; I48.91 Unspecified atrial fibrillation; I10 Essential (primary) hypertension; R01.1 Cardiac murmur, unspecified; Z87.891 Personal history of nicotine dependence; Z79.899 Other long term (current) drug therapy; I49.1 Atrial premature depolarization; Z20.822 Contact with and (suspected) exposure to COVID-19; Z88.5 Allergy status to narcotic agent; Z98.890 Other specified postprocedural states; Z95.828 Presence of other vascular implants and grafts
CPT/HCPCS: 36415; 37211; 37214; 37220; 37252; 37253; 61645; 75625; 80048; 80051; 82565; 84520; 85025; 85384; 85610; 85730; 87635; 93306

== ENCOUNTER → 2021-05-21 | Outpatient (CLI) | payer MEDICARE, OTHER ==
[2021-05-21 16:26] LABS: ALT 15 U/L (10-49); AST 22 U/L (14-35); Chol/HDL Ratio 2.89 Ratio; LDL Cholesterol,Calculated 46.9 mg/dL (0.0-131.0)
== END | disposition home or self-care (01) ==
LOC: LABWHC1 09:39
PROVIDERS: ATTEND Internal Medicine Interventional Cardiology
DX: E78.2 Mixed hyperlipidemia (principal)
CPT/HCPCS: 36415; 80061; 84450; 84460

== ENCOUNTER → 2021-10-14 | Outpatient (CLI) | payer MEDICARE, OTHER ==
[2021-10-14 15:24] LABS: ALT 23 U/L (10-49); AST 24 U/L (14-35); African American GFR (CKD) 57.2 (60.0-200.0); Albumin 4.6 g/dL (3.8-4.9); Albumin/Globulin Ratio 1.65 (1.60-3.17); Alkaline Phosphatase 89 U/L (41-126); BUN/Creat Ratio 17.39 Ratio (12.00-20.00); Blood Urea Nitrogen 23.3 mg/dL (9.0-27.0); Calcium 9.4 mg/dL (8.7-10.3); Carbon Dioxide 19.1 mmol/L (20.0-27.5); Chloride 109 mmol/L (96-109); Chol/HDL Ratio 3.66 Ratio; Globulin 2.8 g/dL (1.6-3.3); Glucose 106 mg/dL (70-110); LDL Cholesterol,Calculated 68.9 mg/dL (0.0-131.0); Non-African American GFR(CKD) 49.3 (60.0-200.0); Potassium 4.7 mmol/L (3.5-5.5); Sodium 143 mmol/L (135-145); Total Protein 7.4 g/dL (6.2-8.2)
== END | disposition home or self-care (01) ==
LOC: LABWHC1 10:15
PROVIDERS: ATTEND Internal Medicine Interventional Cardiology
DX: I48.0 Paroxysmal atrial fibrillation (principal); E78.2 Mixed hyperlipidemia
CPT/HCPCS: 36415; 80053; 80061

== ENCOUNTER → 2023-11-22 | Outpatient (CLI) | payer MEDICARE | END | disposition home or self-care (01) | LOC: LABPRL 10:30 | PROVIDERS: ATTEND Nurse Practitioner Adult Health | DX: E78.2 Mixed hyperlipidemia (principal) | CPT/HCPCS: 80061; 84450; 84460 ==

== ENCOUNTER → 2024-05-20 | Outpatient (CLI) | payer MEDICARE ==
[2024-05-20 19:37] LABS: ALT 27 U/L (10-49); AST 29 U/L (14-35); Albumin 4.2 g/dL (3.8-4.9); Albumin/Globulin Ratio 1.27 Ratio (1.60-3.17); Alkaline Phosphatase 84 U/L (41-126); BUN/Creat Ratio 15.14 Ratio (12.00-20.00); Blood Urea Nitrogen 21.2 mg/dL (9.0-27.0); Calcium 9.8 mg/dL (8.7-10.3); Carbon Dioxide 24.5 mmol/L (21.6-31.8); Chloride 105 mmol/L (96-109); Chol/HDL Ratio 3.35 Ratio; Globulin 3.3 g/dL (1.6-3.3); Glucose 116 mg/dL (70-110); LDL Cholesterol,Calculated 53.3 mg/dL (0.0-131.0); Potassium 4.6 mmol/L (3.5-5.5); Sodium 141 mmol/L (135-145); Total Bilirubin 0.4 mg/dL (0.3-1.2); Total Protein 7.5 g/dL (6.2-8.2)
== END | disposition home or self-care (01) ==
LOC: LABWHC1 09:26
PROVIDERS: ATTEND Internal Medicine Interventional Cardiology
DX: I10 Essential (primary) hypertension (principal); E78.2 Mixed hyperlipidemia
CPT/HCPCS: 36415; 80053; 80061